=== PATIENT | male | born 1980 | race Caucasian/White ===

== ENCOUNTER 2021-10-05 12:28 | Emergency (ER) | payer OTHER ==
[~2021-10-05] VITALS: Ht 172.7 cm; Wt 63.6 kg
[2021-10-05] MEDS ORDERED: FAMOTIDINE 20 MG/2 ML VIAL IVP ONE (13:15)
[2021-10-05] MEDS ORDERED: fentaNYL PF VIAL 100 MCG/2 ML VIAL IVP ONE (13:15)
[2021-10-05] MEDS ORDERED: IV NORMAL SALINE 1000ML BAG 1,000 ML IV SCH (13:15)
[2021-10-05 13:31] LABS: BACTERIA,URINE MANY /HPF (0-FEW); RBC,URINE FIELD OBSCURED /HPF (0-2); WBC,URINE TNTC /HPF (0-4)
[2021-10-05 13:37] LABS: AMPHETAMINE/METHAMPHETAMINE POS (NEG); BARBITURATES NEG (NEG); BENZODIAZEPINES NEG (NEG); CANNABINOIDS POS (NEG); COCAINE NEG (NEG); METHADONE NEG (NEG); OPIATES NEG (NEG); PHENCYCLIDINE NEG (NEG)
[2021-10-05] MEDS ORDERED: cefTRIAXone IV Push 1 GM VIAL. IVP ONE (14:00)
[2021-10-05] MEDS ORDERED: IV NORMAL SALINE 1000ML BAG 1,000 ML IV ONE (14:00)
--- NOTE | 2021-10-05 14:04 | PHYS DOC ---
Past Medical History Past Surgical History: No Surgical History General Adult EDM: Chief Complaint: BLOOD IN URINE HPI: HPI: Patient is a 40 year old male who presents with right lower back pain with blood in his urine after over this past weekend he was picking up and moving some furniture because he got evicted and then he started having right lower back with right flank pain and blood in his urine. Patient states that when the pain hits he starts having chest pains the last couple days. He has a history of kidney stone. He denies shortness of breath, fever, vomiting, diarrhea, headache, dizziness, syncope, focal weakness, numbness or tingling. Rates his pain a sharp nonradiating 10 out of 10. Review of Systems: Review of Systems: Constitutional: Denies fever or chills. [] Eyes: Denies change in visual acuity. [] HENT: Denies nasal congestion or sore throat. [] Respiratory: Denies cough or shortness of breath. [] Cardiovascular: Denies chest pain or edema. [] GI: + Right lower abdominal pain, denies nausea, vomiting, bloody stools or diarrhea. [] : Denies dysuria. + Hematuria [] Musculoskeletal: +Right lower back pain or denies joint pain. [] Integument: Denies rash. [] Neurologic: Denies headache, focal weakness or sensory changes. [] Endocrine: Denies polyuria or polydipsia. [] Lymphatic: Denies swollen glands. [] Psychiatric: Denies depression or anxiety. [] Heart Score: C/O Chest Pain: Yes HEART Score for Chest Pain: HEART Score for Chest Pain Response (Comments) Value History Slighlty/Non-Suspicious 0 ECG Normal 0 Age < 45 0 Risk Factors 1 or 2 Risk Factors 1 Troponin < Normal Limit 0 Total 1 Risk Factors: Risk Factors: DM, Current or recent (<one month) smoker, HTN, HLP, family history of CAD, obesity. Risk Scores: Score 0 - 3: 2.5% MACE over next 6 weeks - Discharge Home Score 4 - 6: 20.3% MACE over next 6 weeks - Admit for Clinical Observation Score 7 - 10: 72.7% MACE over next 6 weeks - Early Invasive Strategies Current Medications: Current Medications Medications (Trade) Dose Ordered Sig/Thien Start Time Stop Time Status Last Admin Dose Admin Famotidine (Pepcid Vial) 20 mg 1X ONCE 10/05/21 13:15 10/05/21 13:16 DC Fentanyl Citrate (Fentanyl 2ml Vial) 50 mcg 1X ONCE 10/05/21 13:15 10/05/21 13:16 DC Ketorolac Tromethamine (Toradol 30mg Vial) 30 mg 1X ONCE 10/05/21 14:15 10/05/21 14:16 Sodium Chloride 1,000 ml @ 1,000 mls/hr Q1H 10/05/21 13:15 10/05/21 14:14 Allergies: Allergies: Allergies Coded Allergies Type Severity Reaction Last Updated Verified No Known Drug Allergies 10/05/21 No Physical Exam: PE: Constitutional: Well developed, well nourished, no acute distress, non-toxic appearance. [] HENT: Normocephalic, atraumatic, bilateral external ears normal, oropharynx moist, no oral exudates, nose normal. [] Eyes: PERRLA, EOMI, conjunctiva normal, no discharge. [] Neck: Normal range of motion, no tenderness, supple, no stridor. [] Cardiovascular:Heart rate regular rhythm, no murmur [] Lungs & Thorax: Bilateral breath sounds clear to auscultation [] Abdomen: Bowel sounds normal, soft, right lower tenderness, no masses, no pulsatile masses. [] Skin: Warm, dry, no erythema, no rash. [] Back: Right low back tenderness, no CVA tenderness. [] Extremities: No tenderness, no cyanosis, no clubbing, ROM intact, no edema. [] Neurologic: Alert and oriented X 3, normal motor function, normal sensory function, no focal deficits noted. [] Psychologic: Affect normal, judgement normal, mood normal. [] Current Patient Data: Labs: Laboratory Tests Test 10/05/21 13:08 Urine Collection Type Unknown Urine Color (Auto) Light orange Urine Turbidity Turbid Urine pH (Auto) 7.0 (<5.0-8.0) Urine Specific [place] 1.011 (1.000-1.030) Urine Protein (Auto) 100 mg/dL (Negative) Urine Glucose (Auto)(UA) Negative mg/dL (Negative) Urine Ketones (Auto) Negative mg/dL (Negative) Urine Blood (Auto) Large (Negative) Urine Nitrite Negative (Negative) Urine Bilirubin (Auto) Negative (Negative) Urine Urobilinogen (Auto) Normal mg/dL (Normal) Urine Leukocyte Esterase (Auto) Large (Negative) Urine RBC Field obscured /HPF (0-2) Urine WBC Tntc /HPF (0-4) Urine Bacteria Many /HPF (0-FEW) Urine Opiates Screen Neg (NEG) Urine Methadone Screen Neg (NEG) Urine Barbiturates Neg (NEG) Urine Phencyclidine Screen Neg (NEG) Urine Amphetamine/Methamphetamine Pos (NEG) Urine Benzodiazepines Screen Neg (NEG) Urine Cocaine Screen Neg (NEG) Urine Cannabinoids Screen Pos (NEG) Urine Ethyl Alcohol Neg (NEG) Vital Signs: Vital Signs Date Time Temp Pulse Resp B/P (MAP) Pulse Ox O2 Delivery O2 Flow Rate FiO2 10/05/21 12:41 98.3 103 24 115/61 (79) 97 Room Air 98.3 EKG: EK and read by Dr. Thompson is a sinus rhythm and no STEMI Radiology/Procedures: Radiology/Procedures: [] Impression: [address] [address] IMAGING REPORT Signed PATIENT: DUSTIN GAY ACCOUNT: [id number] : 1980 LOCATION: ER AGE: 40 SEX: M EXAM STATUS: REG ER ORD. PHYSICIAN: MOHAMUD CHERY APRN REASON: chest pain PROCEDURE: PORTABLE CHEST 1V XR CHEST 1V INDICATION: Reason: chest pain / Spl. Instructions: / History: . COMPARISON STUDY: None. FINDINGS: Lungs: Normal lung volume. No pulmonary mass or consolidation. The tracheobronchial tree and hilar structures are normal. Pleura: No pleural effusion or pneumothorax. Heart and Mediastinum: The cardiomediastinal silhouette is normal. The great vessels of the thorax are normal. Bones and Soft Tissues: The bones and soft tissues are within normal limits. IMPRESSION: No acute cardiopulmonary process. Electronically signed by: Deya Sauceda MD (10/05/2021 2:06 PM) [id number] DICTATED and SIGNED BY: DEYA SAUCEDA MD DATE: 10/05/21 1406 [facility] [address] [place] [address] IMAGING REPORT Signed PATIENT: DUSTIN GAY ACCOUNT: [id number] : 1980 LOCATION: ER AGE: 40 SEX: M EXAM STATUS: REG ER ORD. PHYSICIAN: MOHAMUD CHERY APRN REASON: low back pain with blood in urine PROCEDURE: CT ABDOMEN PELVIS WO CONTRAST INDICATION: Reason: low back pain with blood in urine / Spl. Instructions: / History: COMPARISON: None. TECHNIQUE: Axial CT images were obtained through the abdomen and pelvis with intravenous contrast. One or more of the following individualized dose reduction techniques were utilized for this examination: 1. Automated exposure control; 2. Adjustment of the mA and/or kV according to patient size; 3. Use of iterative reconstruction technique. FINDINGS: There is a couple pulmonary nodules at the bilateral lung base. These are only partially seen and measure up to about 5 mm. Vascular: No abdominal aortic aneurysm. Hepatobiliary: No intrahepatic biliary duct dilation. Pancreas: Limited assessment without contrast. Spleen: Spleen unremarkable. Renal/Bladder: Bilateral severe hydronephrosis and hydroureter with urothelial thickening. A 13 mm cystic lesion of the left kidney. Nonobstructive tiny left renal stone. Severe wall thickening of the urinary bladder with adjacent edema to the fat. Gastrointestinal: Colonic diverticulosis. Moderate stool within the colon. There is calcification within the right lower quadrant of the abdomen measuring up to 12 mm. Most likely cause of this finding is an appendicolith. The appendix is only partially seen secondary to lack of intravenous and oral contrast as well as the appendix abutting unopacified loops of bowel in the right lower quadrant. No dilated loops of bowel to suggest obstruction. IMPRESSION: * Severe wall thickening of the urinary bladder with adjacent edema to the fat which can be seen with severe cystitis. A bladder wall mass cannot be excluded given the severe wall thickening but would be less common in a patient of this age. There is also severe dilatation of the bilateral renal pelvis as well as dilatation of the ureters with urothelial thickening. This could be associated with the bladder process with associated hydronephrosis and urinary tract infection also affecting the bilateral ureters given the wall thickening. * Calcification of the right lower quadrant of the abdomen could be secondary to appendicolith. This could predispose the patient to appendicitis. The partially visualized appendix does not appear grossly dilated but is only partially seen secondary to lack of contrast and unopacified loops of bowel in the area. There is not definitive surrounding inflammatory changes. * Nodules at the lung bases measuring less than 6 mm. Fleischner Society recommendations for solitary solid lung nodule follow up.: In a low risk patient: <6mm - No follow up required. 6-8mm - 6-[address], then CT at 18-24 months. >8mm - CT at 3 months, PET/CT or tissue sampling. In a high risk patient (history of smoking or other known risk factors): <6mm - Follow up CT at 12 months. 6-8mm - 6-[address], then CT at 18-24 months. >8mm - CT at 3 months, PET/CT or tissue sampling. Fleischner Society recommendations for multiple solid lung nodule follow up.: In a low risk patient: <6mm - No follow up required. 6-8mm - 3-[address], then CT at 18-24 months. >8mm - CT at 3-6 months, then at 18-24 months. PET/CT or tissue sampling based on most suspicious nodule. In a high risk patient (history of smoking or other known risk factors): <6mm - Follow up CT at 12 months. 6-8mm - 3-[address], then CT at 18-24 months. >8mm - CT at 3-6 months, PET/CT or tissue sampling option based on most suspicious nodule. Electronically signed by: Leland Thacker MD (10/05/2021 3:06 PM) [id number] DICTATED and SIGNED BY: LELAND THACKER MD DATE: 10/05/21 1442 Course & Med Decision Making: Course & Med Decision Making Pertinent Labs and Imaging studies reviewed. (See chart for details) See HPI. Right lower back tenderness with right lower abdomen tenderness. Patient is positive for marijuana and amphetamines. Skin pink warm and dry. Abdomen otherwise soft and nontender. Patient is urinating blood clots. Alert and oriented x4. Ambulatory with a steady gait. Afebrile. EKG shows a sinus rhythm and no STEMI. CT abdomen pelvis shows severe cystitis. Patient has a lot of bacteria and leukocytes in his urine. No kidney stone is seen. Patient is given azithromycin 1000 mg p.o. He is given Rocephin 1g IV. Patient is given 2 L of normal saline. I have sent off his urine for a chlamydia gonorrhea. He will get first dose of ciprofloxacin IV in the ED. Patient is given strict return precautions. He is tolerating p.o. Vital signs remain stable and normal. Patient is positive for amphetamines and marijuana. [] Dragon Disclaimer: Dragon Disclaimer: This electronic medical record was generated, in whole or in part, using a voice recognition dictation system. Departure Departure Impression: Primary Impression: Cystitis Disposition: ADMITTED INPATIENT Admitting Physician: SHERYL Condition: STABLE Referrals: CHANDLER CAGE MD Patient Instructions: Urinary Tract Infection Additional Instructions: Follow-up with your urologist or primary care doctor. Drink lots of fluid to stay hydrated. Take medication as prescribed and with food until it is gone. I have sent off your urine for chlamydia and gonorrhea and you will be called in 48 hours only if something comes back positive. If you are not able to keep down any fluids or cannot urinate return to the emergency room. Scripts Ciprofloxacin Hcl (CIPROFLOXACIN HCL) 500 Mg Tablet 1 TAB PO BID, #20 TAB Prov: MOHAMUD CHERY APRN 10/05/21 MOHAMUD CHERY APRN Oct 05, 2021 14:04
--- NOTE | 2021-10-05 14:08 | RAD ---
XR CHEST 1V INDICATION: Reason: chest pain / Spl. Instructions: / History: . COMPARISON STUDY: None. FINDINGS: Lungs: Normal lung volume. No pulmonary mass or consolidation. The tracheobronchial tree and hilar st ructures are normal. Pleura: No pleural effusion or pneumothorax. Heart and Mediastinum: The cardiomediastinal silhouette is normal. The great vessels of the thorax ar e normal. Bones and Soft Tissues: The bones and soft tissues are within normal limits. IMPRESSION: No acute cardiopulmonary process. Electronically signed by: Genaro Sauceda MD (10/05/2021 2:06 PM) [id number]
[2021-10-05 14:10] LABS: BASO # 0.1 x10^3/uL (0.0-0.2); BASO % 1 % (0-3); EOS # 0.2 x10^3/uL (0.0-0.7); EOS % 3 % (0-3); HEMATOCRIT 36.1 % (39.0-53.0); HEMOGLOBIN 11.9 g/dL (13.0-17.5); LYMPH # 1.4 x10^3/uL (1.0-4.8); LYMPH % 15 % (24-48); MEAN CORPUSCULAR HEMOGLOBIN 27 pg (25-35); MEAN CORPUSCULAR HGB CONC 33 g/dL (31-37); MEAN CORPUSCULAR VOLUME 83 fL (79-100); MONO # 1.1 x10^3/uL (0.0-1.1); MONO % 12 % (0-9); NEUT # 6.8 x10^3/uL (1.8-7.7); NEUT % 70 % (31-73); PLATELET COUNT 473 x10^3/uL (140-400); RED BLOOD COUNT 4.37 x10^6/uL (4.30-5.70); RED CELL DISTRIBUTION WIDTH 13.4 % (11.5-14.5); WHITE BLOOD COUNT 9.7 x10^3/uL (4.0-11.0)
[2021-10-05] MEDS ORDERED: KETOROLAC 30 MG/ML VIAL. IVP ONE (14:15)
[2021-10-05 14:26] LABS: CALCIUM 9.1 mg/dL (8.5-10.1); CREATININE 1.4 mg/dL (0.7-1.3); GFR 56.4; POTASSIUM 3.8 mmol/L (3.5-5.1)
[2021-10-05 14:32] LABS: ALBUMIN 3.2 g/dL (3.4-5.0); ALBUMIN/GLOBULIN RATIO 0.7 (1.0-1.7); TOTAL BILIRUBIN 0.4 mg/dL (0.2-1.0); TOTAL PROTEIN 7.7 g/dL (6.4-8.2)
--- NOTE | 2021-10-05 15:09 | RAD ---
INDICATION: Reason: low back pain with blood in urine / Spl. Instructions: / History: COMPARISON: None. TECHNIQUE: Axial CT images were obtained through the abdomen and pelvis with intravenous contrast. One or more of the following individualized dose reduction techniques were utilized for this examinat ion: 1. Automated exposure control; 2. Adjustment of the mA and/or kV according to patient size; 3 . Use of iterative reconstruction technique. FINDINGS: There is a couple pulmonary nodules at the bilateral lung base. These are only partially seen and malick sure up to about 5 mm. Vascular: No abdominal aortic aneurysm. Hepatobiliary: No intrahepatic biliary duct dilation. Pancreas: Limited assessment without contrast. Spleen: Spleen unremarkable. Renal/Bladder: Bilateral severe hydronephrosis and hydroureter with urothelial thickening. A 13 mm cy stic lesion of the left kidney. Nonobstructive tiny left renal stone. Severe wall thickening of the u rinary bladder with adjacent edema to the fat. Gastrointestinal: Colonic diverticulosis. Moderate stool within the colon. There is calcification wit hin the right lower quadrant of the abdomen measuring up to 12 mm. Most likely cause of this finding is an appendicolith. The appendix is only partially seen secondary to lack of intravenous and oral co ntrast as well as the appendix abutting unopacified loops of bowel in the right lower quadrant. No di lated loops of bowel to suggest obstruction. IMPRESSION: * Severe wall thickening of the urinary bladder with adjacent edema to the fat which can be seen wi th severe cystitis. A bladder wall mass cannot be excluded given the severe wall thickening but would be less common in a patient of this age. There is also severe dilatation of the bilateral renal pelv is as well as dilatation of the ureters with urothelial thickening. This could be associated with the bladder process with associated hydronephrosis and urinary tract infection also affecting the bilate ral ureters given the wall thickening. * Calcification of the right lower quadrant of the abdomen could be secondary to appendicolith. This could predispose the patient to appendicitis. The partially visualized appendix does not appear meredith sly dilated but is only partially seen secondary to lack of contrast and unopacified loops of bowel i n the area. There is not definitive surrounding inflammatory changes. * Nodules at the lung bases measuring less than 6 mm. Fleischner Society recommendations for solitary solid lung nodule follow up.: In a low risk patient: <6mm - No follow up required. 6-8mm - 6-[address], then CT at 18-24 months. >8mm - CT at 3 months, PET/CT or tissue sampling. In a high risk patient (history of smoking or other known risk factors): <6mm - Follow up CT at 12 months. 6-8mm - 6-[address], then CT at 18-24 months. >8mm - CT at 3 months, PET/CT or tissue sampling. Fleischner Society recommendations for multiple solid lung nodule follow up.: In a low risk patient: <6mm - No follow up required. 6-8mm - 3-[address], then CT at 18-24 months. >8mm - CT at 3-6 months, then at 18-24 months. PET/CT or tissue sampling based on most suspicious no dule. In a high risk patient (history of smoking or other known risk factors): <6mm - Follow up CT at 12 months. 6-8mm - 3-[address], then CT at 18-24 months. >8mm - CT at 3-6 months, PET/CT or tissue sampling option based on most suspicious nodule. Electronically signed by: Adan More MD (10/05/2021 3:06 PM) [id number]
[2021-10-05 15:45] VITALS: BP 119/75
[2021-10-05] MEDS ORDERED: AZITHROMYCIN 250 MG TABLET. PO ONE (15:45)
[2021-10-05] MEDS ORDERED: DOXYCYCLINE HYCLATE 100 MG in IV DEXTROSE 5% 100ML 100 ML IV ONE (15:45)
[2021-10-05] MEDS ORDERED: CIPROFLOXACIN 400MG PREMIX 200 ML IV ONE (16:00)
[2021-10-05] MEDS ORDERED: CIPR500T2 PO (16:35)
--- NOTE | 2021-10-06 17:41 | EKG ---
[facility] [address] [place] [address] Test Date: 2021-10-05 Test Time: 12:52:34 Pat Name: DUSTIN GAY Department: Room: Gender: M [employer] Technician: : 1980 Requested By: MOHAMUD CHERY Order Number: [id number] Reading MD: Timothy Carmona Measurements Intervals [place] Rate: 97 P: 52 DC: 120 QRS: 87 QRSD: 94 T: 46 QT: 318 QTc: 408 Interpretive Statements SINUS RHYTHM Electronically Signed On 10-06-2021 21:19:18 CDT by Timothy Carmona
== END 2021-10-05 18:46 | disposition home or self-care (01) ==
LOC: ER 12:28
DX: N30.90 Cystitis, unspecified without hematuria (principal)
CPT/HCPCS: 36415; 71045; 74176; 80053; 80307; 81001; 83690; 84484; 85025; 87086; 87491; 87591; 93005; 96361; 96365; 96375; 99285; J0696; J0744; J1885; J3490; J7030